=== PATIENT | male | born 1985 | race Caucasian/White ===

== ENCOUNTER 2016-10-15 12:20 | Emergency (ER) | payer OTHER ==
[2016-10-15 13:17] LABS: BASOPHIL% 0.4 % (0-2.5); EOSINOPHIL# 0.1 X10e3 (0-0.7); EOSINOPHIL% 0.8 % (0.0-7.0); HEMATOCRIT 45.8 % (38.0-50.0); HEMOGLOBIN 15.2 gm/dL (13.0-16.0); LYMPHOCYTE# 1.5 X10e3 (1.0-3.5); MEAN CELL VOLUME 89.8 FL (83-96); MEAN CORPUSCULAR HEMOGLOBIN 29.8 PG (28-34); MEAN CORPUSCULAR HGB CONC 33.2 g/dL (30-36); MEAN PLATELET VOLUME 7.9 FL (6.5-11.5); MONOCYTE# 0.6 X10e3 (0-1.0); MONOCYTE% 5.3 % (3.0-12.0); NEUTROPHIL# 9.5 X10e3 (1.5-7.1); NEUTROPHIL% 80.5 % (40-75); PLATELET COUNT 257 X10e3 (140-420); RED CELL DISTRIBUTION WIDTH 12.8 % (11.0-15.5); WHITE BLOOD COUNT 11.8 X10e3 (4.0-10.5)
[2016-10-15 13:18] LABS: DIFF IND NO
[2016-10-15 13:42] LABS: ALBUMIN SERUM 4.7 g/dL (3.5-5.0); BILIRUBIN, DIRECT 0.1 mg/dL (0.0-0.2); BILIRUBIN,INDIRECT 0.6 mg/dL (0.0-0.9); BILIRUBIN,TOTAL 0.7 mg/dL (0.2-2.0); BUN/CREATININE RATIO 17.27; CALCIUM SERUM 9.8 mg/dL (8.4-10.2); CREATININE SERUM 1.1 mg/dL (0.6-1.4); GLOM FILT RATE Estimated 88.4 mL/min (>60); PROTEIN TOTAL SERUM 8.3 g/dL (6.0-8.3)
[2016-10-15 15:07] LABS: URINE SOURCE CLEAN CATCH
[2016-10-15 15:10] LABS: URINE APPEARANCE TURBID; URINE BILIRUBIN NEG (NEG); URINE BLOOD NEG (NEG); URINE COLOR YELLOW; URINE GLUCOSE NEG (NEG); URINE KETONE NEG (NEG); URINE LEUKOCYTE ESTERASE TRACE (NEG); URINE NITRATE NEG (NEG); URINE PH 7.5 (5-8); URINE PROTEIN TRACE (NEG); URINE SPECIFIC GRAVITY 1.024 (1.003-1.035)
[2016-10-15 15:16] LABS: URBCS1 AUWI 0-2 /[HPF] (0-2); URINE BACTERIA AUWI NEG (NEGATIVE); URINE SQUAMOUS EPITHELIAL CELL OCC /[HPF]
[2016-10-15 15:17] LABS: CULTURE INDICATED? NO
[2016-11-18] MEDS ORDERED: NO MEDICATIONS (08:20)
== END 2016-10-15 15:32 | disposition home or self-care (01) ==
LOC: CED 12:20
DX: R10.9 Unspecified abdominal pain (principal); Z98.890 Other specified postprocedural states
CPT/HCPCS: 36415; 80048; 80076; 81003; 83690; 85025; 99284

== ENCOUNTER 2016-10-18 07:14 | Emergency (ER) | payer OTHER ==
--- NOTE | ~2016-10-18 | US67 ---
[facility] A Service of [facility] RADIOLOGY TEXT RESULTS PATIENT: ELDON LOO LOCATION: [facility] : [birth year] UNIT #: [id number] AGE: [address]: Joy Fuentes SEX: M ORDER DR: [id number] [facility] [address] [place], [place] [address] [id number] MR#: [id number] Acc #: [id number] NAME: ELDON LOO : 1985 SEX: M STUDY DATE/TIME: 10/18/2016 9:02 UNIT: [facility] ROOM: STUDY DESCRIPTION: Gallbladder Attending Physician: Joy Fuentes P.A.-C. Ordering Physician: Joy Fuentes P.A.-C. Primary Care Physician: No Primary Care Physician MEDICAL IMAGING REPORT This report is preliminary unless electronic signature is present EXAM Gallbladder ultrasound 10/18/2016 HISTORY Right upper quadrant abdominal pain for 8 hours today. FINDINGS The liver is homogeneous in echotexture and demonstrates no cystic or solid mass lesions. The intra- and extrahepatic bile ducts are not dilated. The gallbladder contains a single shadowing gallstone measuring approximately 1.5 cm. There is no evidence of gallbladder wall thickening or pericholecystic fluid. The common duct measures 5 mm. The pancreas and right kidney are normal. IMPRESSION Cholelithiasis. No evidence of gallbladder wall thickening or pericholecystic fluid. No intra- or extrahepatic biliary ductal dilatation. Dictated by... Dick Adams M.D. THIS IS AN ELECTRONICALLY VERIFIED REPORT Dick Adams M.D. at 10/18/2016 4:33 PM KRT/isidro TD: 10/18/2016 13:17 JOB #: [id number] MEDICAL IMAGING REPORT Page 1 of 1 COPY
[2016-10-18 08:23] LABS: BASOPHIL% 0.7 % (0-2.5); EOSINOPHIL# 0.1 X10e3 (0-0.7); EOSINOPHIL% 0.9 % (0.0-7.0); HEMATOCRIT 42.5 % (38.0-50.0); HEMOGLOBIN 14.5 gm/dL (13.0-16.0); LYMPHOCYTE# 1.2 X10e3 (1.0-3.5); LYMPHOCYTE% 17.4 % (17.0-45.0); MEAN CELL VOLUME 89.6 FL (83-96); MEAN CORPUSCULAR HEMOGLOBIN 30.6 PG (28-34); MEAN CORPUSCULAR HGB CONC 34.1 g/dL (30-36); MEAN PLATELET VOLUME 7.9 FL (6.5-11.5); MONOCYTE# 0.6 X10e3 (0-1.0); MONOCYTE% 8.3 % (3.0-12.0); NEUTROPHIL# 4.9 X10e3 (1.5-7.1); NEUTROPHIL% 72.7 % (40-75); PLATELET COUNT 220 X10e3 (140-420); RED BLOOD COUNT 4.74 X10e (3.90-5.60); RED CELL DISTRIBUTION WIDTH 12.9 % (11.0-15.5); WHITE BLOOD COUNT 6.7 X10e3 (4.0-10.5)
[2016-10-18 08:25] LABS: DIFF IND NO
[2016-10-18 08:47] LABS: ALBUMIN SERUM 4.1 g/dL (3.5-5.0); BILIRUBIN, DIRECT 0.4 mg/dL (0.0-0.2); BILIRUBIN,TOTAL 1.4 mg/dL (0.2-2.0); CALCIUM SERUM 9.2 mg/dL (8.4-10.2); CREATININE SERUM 0.9 mg/dL (0.6-1.4); GLOM FILT RATE Estimated 112.6 mL/min (>60); POTASSIUM 4.1 mmol/L (3.5-5.1); PROTEIN TOTAL SERUM 7.2 g/dL (6.0-8.3)
[2016-11-18] MEDS ORDERED: NO MEDICATIONS (08:20)
== END 2016-10-18 12:40 | disposition home or self-care (01) ==
LOC: CED 07:14
PROVIDERS: Physician Assistant
DX: K80.80 Other cholelithiasis without obstruction (principal); B96.81 Helicobacter pylori [H. pylori] as the cause of diseases classified elsewhere
CPT/HCPCS: 36415; 76705; 80048; 80076; 82150; 83690; 85025; 86677; 96374; 99284; J1885

== ENCOUNTER → 2016-11-26 | Day surgery (SDC) | payer OTHER ==
[~2016-11-26] MED LIST: NO MEDICATIONS
--- NOTE | ~2016-11-26 | OR ---
Unit #: [id number] #: [id number] Patient: ELDON LOO [id number] [address] [address] [id number] O MR#: [id number] NAME: ELDON LOO ROOM: Date of Procedure: 11/26/2016 Admission Date: 11/26/2016 Surgeon: Reddy Hogue Jr., M.D. : 1985 Attending Physician: Reddy Hogue Jr., M.D. OPERATIVE REPORT INDICATIONS FOR PROCEDURE Intermittent right upper quadrant abdominal pain. PREOPERATIVE DIAGNOSES 1. Biliary colic. 2. Cholecystitis. 3. Cholelithiasis. POSTOPERATIVE DIAGNOSES 1. Right inguinal hernia. 2. Cholecystitis. 3. Cholelithiasis. FINDINGS OF PROCEDURE Chronic inflammation around the gallbladder and a right inguinal hernia. ANESTHESIA GIVEN General anesthesia with endotracheal intubation and 0.5 Marcaine for the local in the port site. OPERATION PERFORMED Laparoscopic cholecystectomy. DESCRIPTION OF PROCEDURE The patient was placed in a supine position. General anesthesia was given and the patient underwent endotracheal intubation for laparoscopic cholecystectomy. The patient was prepped and draped in a routine sterile fashion. A 5-mm incision was made just above the umbilicus and the peritoneum was grabbed with a towel clips and pulled upward. We then inserted the Veress needle to administer the CO2 into the abdomen. Two smaller 5-mm port sites were made in the right lateral abdominal wall. Another abdominal port was placed just lateral to the upper midline. After all ports were inserted, the abdomen was inspected and there were no signs of injury or bleeding to the intraabdominal area. The gallbladder was then identified and lifted with the port. The cystic duct, cystic artery, and common duct were identified. The cystic duct was dissected away from the triangle of Calot. Four surgical clips were then placed around the cystic duct. The cystic duct was then clamped. The cystic artery was then identified and surgical clamps were placed around that as well and then it was also clipped. The gallbladder was then dissected around and underneath the liver. The gallbladder was then removed from Unit #: [id number] #: [id number] Patient: ELDON LOO the largest port site. Upon removing the gallbladder, we looked around in the abdomen to look for any additional bleeding. Any minimal bleeding in the liver was cauterized with a Bovie. Surgical gauze was then inserted into the abdomen, and after any minimal bleeding was removed, no additional bleeding was noted. The fascia at the larger port site was then closed with a neoClose technique and any remaining port sites were then closed with surgical sb. Estimated blood loss for the procedure was less than 50 mL. Fluids given by Anesthesia was less than 1500 of D5 lactated Ringer's. Sponge and instrument count was correct x3. There were no drains used. No complications. The patient was taken to the recovery room with stable vital signs in satisfactory condition. Dictated by... Maria Del Rosario Farrar for Reddy Hogue Jr., M.D. BB/filiberto TD: 11/27/2016 13:23 JOB #: [id number] OPERATIVE REPORT Page 1 of 1 X X PROCEDURE OPERATIVE NOTE
[2016-11-26 12:15] LABS: BILIRUBIN,TOTAL 0.9 mg/dL (0.2-2.0); BUN/CREATININE RATIO 15.55; CALCIUM SERUM 8.9 mg/dL (8.4-10.2); CREATININE SERUM 0.9 mg/dL (0.6-1.4); GLOM FILT RATE Estimated 111.8 mL/min (>60); POTASSIUM 3.7 mmol/L (3.5-5.1); PROTEIN TOTAL SERUM 7.1 g/dL (6.0-8.3)
== END | disposition home or self-care (01) ==
LOC: CSUR 10:43
PROVIDERS: Surgery
DX: K80.10 Calculus of gallbladder with chronic cholecystitis without obstruction (principal); K40.90 Unilateral inguinal hernia, without obstruction or gangrene, not specified as recurrent; Z98.890 Other specified postprocedural states
CPT/HCPCS: 80053; 88304; J0131; J0330; J0690; J1100; J1885; J2250; J2405; J2710; J3010